=== PATIENT | male | born 1950 | race African-American/Black ===

== ENCOUNTER 2019-01-09 12:00 | Emergency (ER) | payer OTHER, BC ==
[~2019-01-09] VITALS: Ht 172.7 cm; Wt 72.6 kg
[~2019-01-09 12:00] MED LIST: ACETAMINOPHEN325 M1 PO; AMLODIPINE BESY10 MG PO; ASPIRIN EC81 M1 PO; B COMPLEX-VITA1 EACH PO; CARDIZEM CD360 MG PO; CARVEDILOL25 MG PO; CLONIDINE-TTS0.3 MG TRANSDERM; DEMADEX20 MG PO; HYDRALAZINE 5050 M1 PO; HYDRALAZINE HC100 MG PO; LISINOPRIL40 MG PO; LOPRESSOR100 MG PO; MULTAQ 400 MG400 MG PO; NEPHROCAPS SOFT1 CAP PO; PAIN & FEVER325 MG PO; PHOSLO667 MG PO; WARFARIN; ZPAK PO
[2019-01-09 12:01] VITALS: BP 121/70
[2019-01-09] MEDS ORDERED: MYCOPHENOLIC A360 MG PO (12:11)
[2019-01-09] MEDS ORDERED: LIPITOR 20 MG T20 M1 PO (12:12)
[2019-01-09] MEDS ORDERED: PREDNISONE 5 MG5 M1 PO (12:12)
[2019-01-09] MEDS ORDERED: TACROLIMUS0.5 MG PO (12:12)
[2019-01-09] MEDS ORDERED: ASPIR 8181 MG PO (12:12)
[2019-01-09] MEDS ORDERED: TACROLIMUS1 MG PO (12:12)
[2019-01-09] MEDS ORDERED: DOXYCYCLINE 10100 MG PO (12:33)
== END 2019-01-09 12:37 | disposition home or self-care (01) ==
LOC: ER 12:00
DX: S50.861A Insect bite (nonvenomous) of right forearm, initial encounter (principal); I12.0 Hypertensive chronic kidney disease with stage 5 chronic kidney disease or end stage renal disease; N18.6 End stage renal disease; E78.5 Hyperlipidemia, unspecified; Z86.2 Personal history of diseases of the blood and blood-forming organs and certain disorders involving the immune mechanism; W57.XXXA Bitten or stung by nonvenomous insect and other nonvenomous arthropods, initial encounter; Y92.89 Other specified places as the place of occurrence of the external cause; Y93.89 Activity, other specified; Y99.8 Other external cause status